=== PATIENT | male | born 1980 | race Hispanic/Latino ===

== ENCOUNTER 2019-04-13 11:35 | Emergency (ER) | payer SELFPAY ==
--- NOTE | 2019-04-13 12:03 | RAD ---
LEFT HAND 3 VIEWS: HISTORY: Injury, left hand pain FINDINGS: There is a comminuted fracture involving the shaft of the proximal phalanx of the ring finger/fourth digit of the left hand with mild displacement. No radiopaque foreign body is seen.
[2019-04-13] MEDS ORDERED: Adacel (T-DAP) 0.5 ML SYRINGE ONE (12:15)
[2019-04-13] MEDS ORDERED: CEFAZOLIN 1 GM VIAL ONE (12:15)
[2019-04-13] MEDS ORDERED: Sodium Chloride 0.9% 100 ML ONE (12:16)
[2019-04-13] MEDS ORDERED: Fentanyl 100 MCG/2 ML VIAL ONE (12:28)
[2019-04-13] MEDS ORDERED: Sodium Chloride 0.9% 1,000 ML ONE (12:28)
[2019-04-13] MEDS ORDERED: Bacitracin 1 PK ONE (12:36)
[2019-04-13 12:46] LABS: #Basophils 0.1 thou/uL (0.0-0.2); #Eosinphils 0.1 thou/uL (0.0-0.7); #Lymphocytes 2.2 thou/uL (1.20-3.40); #Monocytes 0.4 thou/uL (0.11-0.59); #Neutrophils 5.9 thou/uL (1.40-6.50); %Basophils 0.8 % (0.0-1.0); %Eosinophils 1.5 % (0.0-10.0); %Lymphocytes 25.7 % (21.0-51.0); %Neutrophils 67.1 % (42.0-75.0); Hemoglobin 15.3 g/dL (14.0-18.0); Mean Corpuscular HGB CONC 31.1 g/dL (32.0-36.0); Mean Corpuscular Hemoglobin 28.8 pg (27.0-31.0); Mean Corpuscular Volume 92.5 fL (78.0-98.0); Mean Platelet Volume 8.4 fL (7.4-10.4); Platelet Count 236 thou/uL (130-400); RBC Distribution Width 12.6 % (11.5-14.5); Red Blood Cell (RBC) Count 5.31 mill/uL (4.70-6.10); White Blood Cell (WBC) Count 8.7 thou/uL (4.8-10.8)
[2019-04-13 13:00] LABS: ALT (SGPT) 30 U/L (8-55); AST (SGOT) 20 U/L (5-34); Albumin 4.3 g/dL (3.5-5.0); Alkaline Phosphatase 58 U/L (40-150); Anion Gap 15 mmol/L (10-20); BUN (Urea Nitrogen) 15 mg/dL (8.9-20.6); Bilirubin, Total 0.4 mg/dL (0.2-1.2); Calc. Creatinine Clearance 0 mL/min (70-130); Calcium 9.8 mg/dL (7.8-10.44); Carbon Dioxide 24 mmol/L (22-29); Chloride 106 mmol/L (98-107); Estimated GFR-MDRD Greater than 90; Globulin 3.9 g/dL (2.4-3.5); Glucose 95 mg/dL (70-105); Potassium 3.9 mmol/L (3.5-5.1); Protein, Total 8.2 g/dL (6.0-8.3); Sodium 141 mmol/L (136-145)
== END 2019-04-13 13:13 | disposition short-term general hospital (02) ==
LOC: NAV ERS 11:35
DX: S62.615B Displaced fracture of proximal phalanx of left ring finger, initial encounter for open fracture (principal); Z87.891 Personal history of nicotine dependence; W22.8XXA Striking against or struck by other objects, initial encounter
CPT/HCPCS: 29125; 80053; 85025; 90471; 90715; 96365; 96375; J0690; J3010; J3490; J7050